=== PATIENT | male | born 1975 | race Caucasian/White ===

== ENCOUNTER → 2021-07-28 | Outpatient (CLI) | payer OTHER | LOC: CT 10:00 | DX: J34.89 Other specified disorders of nose and nasal sinuses (principal) | CPT/HCPCS: 70487; Q9967 ==

== ENCOUNTER → 2022-02-05 | Outpatient (CLI) | payer OTHER | LOC: LAB 10:08 | DX: B34.9 Viral infection, unspecified (principal); Z20.822 Contact with and (suspected) exposure to COVID-19 | CPT/HCPCS: U0003 ==

== ENCOUNTER → 2022-02-20 | Outpatient (CLI) | payer OTHER | LOC: LAB 11:24 | DX: B34.9 Viral infection, unspecified (principal); Z20.822 Contact with and (suspected) exposure to COVID-19 | CPT/HCPCS: U0003 ==

== ENCOUNTER → 2022-02-23 | Outpatient (CLI) | payer OTHER | LOC: LAB 11:44 | DX: B34.9 Viral infection, unspecified (principal); Z20.822 Contact with and (suspected) exposure to COVID-19 | CPT/HCPCS: U0003 ==

== ENCOUNTER → 2022-03-27 | Outpatient (CLI) | payer OTHER | LOC: LAB 09:16 | DX: Z20.822 Contact with and (suspected) exposure to COVID-19 (principal) | CPT/HCPCS: U0002 ==